=== PATIENT | female | born 1995 | race Hispanic/Latino ===

== ENCOUNTER 2019-02-10 13:10 | Outpatient (CLI) | payer OTHER ==
--- NOTE | 2019-02-10 14:19 | ULT ---
EXAM: OB ultrasound COMPARISON: None HISTORY: female. Evaluate size, dates, and anatomy. TECHNIQUE: Multiplanar grayscale and color Doppler images were obtained in a transabdominal ult rasound. FINDINGS: There is a single live intrauterine with heart rate of 147 bpm. A survey wa s performed which is unremarkable. The face was not well visualized. The head, intracranial structures, heart, stomach, kidneys, umbilical cord, umbilical cord insertion, spine, and extremities were evaluated and were unremarkable. Estimated weight is 460 g. Average age of the fetus based off today's examination is 21 weeks 5 days. BPD 5.21 cm -- 21 weeks 6 days HC 19.54 cm -- 21 weeks 5 days AC 17.42 cm -- 22 weeks 2 days FL 3.60 cm -- 21 weeks 3 days The placenta is anterior in location without focal abnormality. LAURA is 18.5 cm which is normal. The cervix is normal in length. There is no evidence of placenta previa. IMPRESSION: Single live intrauterine with estimated age of 21 weeks 5 days.
== END 2019-02-10 13:11 | disposition home or self-care (01) ==
LOC: SCSULT 13:10
PROVIDERS: ATTEND Family Medicine
DX: Z34.02 Encounter for supervision of normal first pregnancy, second trimester (principal); Z3A.21 21 weeks gestation of pregnancy
CPT/HCPCS: 76805

== ENCOUNTER 2019-06-14 09:14 | Inpatient (IN) | payer MEDICAID, OTHER, SELFPAY ==
[2019-06-14 09:48] VITALS: BMI 32.1
[2019-06-14] MEDS ORDERED: hydrALAZINE 20 MG/ML VIAL SLOW IVP PRN ×3 (10:38→21:22)
[2019-06-14] MEDS ORDERED: Morphine 4 MG/ML VIAL IM SCH (10:45)
[2019-06-14] MEDS: Lactated Ringer's 1,000 ML IV SCH ×3 (10:45→22:41)
[2019-06-14] MEDS ORDERED: Morphine 4 MG/ML VIAL SLOW IVP SCH (10:45)
[2019-06-14] MEDS ORDERED: Lactated Ringer's 1,000 ML IV SCH (10:45)
[2019-06-14] MEDS ORDERED: Ondansetron PF 4 MG/2 ML Vial IVP SCH (10:45)
[2019-06-14] MEDS ORDERED: Morphine 10 MG/ML VIAL ONE (10:51)
[2019-06-14] MEDS ORDERED: Ondansetron PF 4 MG/2 ML Vial ONE (10:51)
[2019-06-14] MEDS ORDERED: Morphine 4 MG/ML VIAL IV SCH (12:30)
[2019-06-14] MEDS ORDERED: Penicillin G Potassium 5 MILL.UNITS VIAL ONE (13:07)
[2019-06-14] MEDS ORDERED: Butorphanol Tartrate 1 MG/ML VIAL SLOW IVP PRN (13:10)
[2019-06-14] MEDS ORDERED: Ibuprofen 800 MG TAB PO PRN (13:10)
[2019-06-14] MEDS ORDERED: Ondansetron PF 4 MG/2 ML Vial IVP PRN ×3 (13:10→21:22)
[2019-06-14] MEDS ORDERED: Lidocaine 1% (PF) 30 ML VIAL SC PRN (13:10)
[2019-06-14] MEDS ORDERED: HYDROcodone/Acetaminophen 5/325 mg Tablet PO PRN ×2 (13:10→21:22)
[2019-06-14] MEDS ORDERED: Penicillin G Potassium 5 MILL.UNITS in Sodium Chloride 0.9% 100 ML IVPB SCH (13:15)
[2019-06-14] MEDS ORDERED: Fentanyl 4 mcg/Bup 0.1% Cadd 100 ML ONE (13:34)
[2019-06-14 13:42] LABS: Hemoglobin 14.4 g/dL (12.0-16.0); Mean Corpuscular HGB CONC 34.6 g/dL (32.0-36.0); Mean Corpuscular Hemoglobin 28.8 pg (27.0-31.0); Mean Corpuscular Volume 83.3 fL (78.0-98.0); Mean Platelet Volume 9.2 fL (7.4-10.4); Platelet Count 184 thou/uL (130-400); RBC Distribution Width 14.7 % (11.5-14.5); Red Blood Cell (RBC) Count 4.99 mill/uL (4.20-5.40); White Blood Cell (WBC) Count 15.4 thou/uL (4.8-10.8)
[2019-06-14] MEDS ORDERED: Dextrose 5%-Lactated Ringers 1,000 ML IV SCH (13:45)
[2019-06-14 14:23] LABS: HBSAg Index 0.23 S/CO (0-0.99); Hep B Surf Ag Non-Reactive S/CO (NonReactive); Syphilis Antibody Nonreactive (Nonreactive); Syphilis Antibody Index 0.03 S/CO (<1.00 Non-Reactive)
[2019-06-14] MEDS ORDERED: Promethazine HCl 25 MG/ML VIAL IM PRN (14:33)
[2019-06-14] MEDS ORDERED: Acetaminophen 325 MG TAB PO PRN (14:33)
[2019-06-14] MEDS ORDERED: diphenhydrAMINE 50 MG/ML VIAL IVP PRN (14:33)
[2019-06-14] MEDS ORDERED: EPHEDRINE 25 MG/5 ML SYRINGE SLOW IVP PRN (14:33)
[2019-06-14] MEDS ORDERED: Lactated Ringer's 500 ML IV PRN (14:33)
[2019-06-14] MEDS ORDERED: Naloxone HCl 0.4 mg/ml Vial IVP PRN ×2 (14:33)
[2019-06-14] MEDS ORDERED: Communication Order-Pharmacy FS SCH (14:45)
[2019-06-14] MEDS ORDERED: Fentanyl 4 mcg/Bupivacaine 0.1% Cassette 100 ML EPIDURAL SCH (14:45)
[2019-06-14] MEDS: Penicillin G 2.5 MILL.units 2.5 MILL.UNITS in Premix Bag 1 BAG IVPB SCH ×2 (16:50→22:41)
[2019-06-14] MEDS: NS / Oxytocin 40 units/1000ml 1,000 ML IV PRN ×2 (19:00→20:32)
[2019-06-14] MEDS ORDERED: NS / Oxytocin 40 units/1000ml 1,000 ML IV SCH (21:22)
[2019-06-14] MEDS ORDERED: Lanolin Ointment 7 GM TUBE TOP PRN (21:22)
[2019-06-14] MEDS ORDERED: Bisacodyl 10 MG SUPP PR PRN (21:22)
[2019-06-14] MEDS ORDERED: diphenhydrAMINE 25 MG CAP PO PRN (21:22)
[2019-06-14] MEDS ORDERED: Benzocaine-Menthol 82.5 ML CAN TOP PRN (21:22)
[2019-06-14] MEDS ORDERED: Milk Of Magnesia 30 ML UDCUP PO PRN (21:22)
[2019-06-14] MEDS: Docusate Calcium (SURFAK) 240 MG CAP PO SCH (22:31)
[2019-06-14] MEDS: Ibuprofen 800 MG TAB PO SCH (22:31)
[2019-06-14] MEDS: HYDROcodone/Acetaminophen 5/325 mg Tablet PO PRN (23:20)
[2019-06-15] MEDS: HYDROcodone/Acetaminophen 5/325 mg Tablet PO PRN ×2 (05:39→18:24)
[2019-06-15] MEDS: Ibuprofen 800 MG TAB PO SCH ×3 (05:39→21:48)
[2019-06-15 06:52] LABS: Hemoglobin 12.8 g/dL (12.0-16.0); Mean Corpuscular HGB CONC 32.5 g/dL (32.0-36.0); Mean Corpuscular Hemoglobin 27.6 pg (27.0-31.0); Mean Corpuscular Volume 85.1 fL (78.0-98.0); Mean Platelet Volume 9.7 fL (7.4-10.4); Platelet Count 159 thou/uL (130-400); RBC Distribution Width 14.8 % (11.5-14.5); Red Blood Cell (RBC) Count 4.63 mill/uL (4.20-5.40); White Blood Cell (WBC) Count 12.9 thou/uL (4.8-10.8)
[2019-06-15] MEDS: Ferrous Sulfate 325 MG TAB PO SCH ×2 (08:58→17:14)
[2019-06-15] MEDS ORDERED: Adacel (T-DAP) 0.5 ML SYRINGE IM ONE (09:00)
[2019-06-15] MEDS: Prenatal Vitamin 1 TAB PO SCH (09:34)
[2019-06-15] MEDS: Docusate Calcium (SURFAK) 240 MG CAP PO SCH ×2 (09:34→21:48)
[2019-06-15] MEDS: Ondansetron ODT 4 MG TAB PO PRN (10:45)
[2019-06-16] MEDS: HYDROcodone/Acetaminophen 5/325 mg Tablet PO PRN ×2 (01:53→15:03)
[2019-06-16] MEDS: Ibuprofen 800 MG TAB PO SCH ×3 (05:47→17:09)
[2019-06-16 07:53] VITALS: BP 100/59; TEMP 98
[2019-06-16] MEDS: Ferrous Sulfate 325 MG TAB PO SCH ×2 (08:22→15:03)
[2019-06-16] MEDS: Docusate Calcium (SURFAK) 240 MG CAP PO SCH (08:23)
[2019-06-16] MEDS: Prenatal Vitamin 1 TAB PO SCH (08:23)
[2019-06-16] MEDS: Ondansetron ODT 4 MG TAB PO PRN (18:56)
== END 2019-06-16 19:29 | disposition home or self-care (01) | DRG 807 ==
LOC: L&D/OP 09:14 → L&D 13:17 → 3SE 21:58
PROVIDERS: ADMIT Family Medicine; ATTEND Family Medicine
PROC: 10E0XZZ Delivery of Products of Conception, External Approach (ICD-10-PCS; principal; 2019-06-14)
PROC: 0KQM0ZZ Repair Perineum Muscle, Open Approach (ICD-10-PCS; 2019-06-14)
PROC: 10907ZC Drainage of Amniotic Fluid, Therapeutic from Products of Conception, Via Natural or Artificial Opening (ICD-10-PCS; 2019-06-14)
PROC: 0UQMXZZ Repair Vulva, External Approach (ICD-10-PCS; 2019-06-14)
DX: O99.824 Streptococcus B carrier state complicating childbirth (principal); Z37.0 Single live birth; Z3A.39 39 weeks gestation of pregnancy; O70.1 Second degree perineal laceration during delivery; O77.0 Labor and delivery complicated by meconium in amniotic fluid
CPT/HCPCS: 36415; 51702; 85027; 86780; 86850; 86900; 86901; 87340; 99285; J2270; J2405; J2540; J3490; Q0162; Q0163